=== PATIENT | male | born 1985 | race Caucasian/White ===

== ENCOUNTER 2017-02-14 11:20 | Emergency (ER) | payer SELFPAY ==
[2017-02-14 11:27] VITALS: BP 141/89
--- NOTE | 2017-02-14 12:14 | UC ---
Throat Pain/Nasal Jos HPI - HPI Summary HPI Summary: SEVERAL MONTHS OF NECK STIFFNESS, SORE THROAT, OCCASIONAL FB FEELING. IN JULY TOOK 14 DAYS OF PRILOSEC, STOPPED TAKING MEDICATION BUT SYMPTOMS HAVE RETURNED AND NOW ARE WORSENING. NO FEVER. NO PRIMARY CARE. - History of Current Complaint Chief Complaint: UCRespiratory Stated Complaint: SORE THROAT Time Seen by Provider: 02/14/17 11:23 Hx Obtained From: Patient Onset/Duration: Gradual Onset, Lasting Weeks - LASTING MONTHS, Still Present Severity: Moderate Cough: None Associated Signs & Symptoms: Positive: Dysphagia, FB Sensation, Hoarseness - Epiglottits Risk Factors Epiglottis Risk Factors: Negative - Allergies/Home Medications Allergies/Adverse Reactions: Allergies Allergy/AdvReac Type Severity Reaction Status Date / Time No Known Allergies Allergy Verified 02/14/17 11:27 PMH/Surg Hx/FS Hx/Imm Hx Previously Healthy: Yes Cardiovascular History Of: Reports: Cardiac Disorders - HEART MURMUR Comment Only: Hypertension - FAMILIAL HX OF HTN - Surgical History Surgical History: Yes Surgery Procedure, Year, and Place: Left Carpal Tunnel, ~2003, [place] - Family History Known Family History: Negative: Diabetes - Social History Occupation: Employed Full-time Lives: With Family Alcohol Use: Weekly Substance Use Type: None Smoking Status (MU): Light Every Day Tobacco Smoker Type: Cigarettes Amount Used/How Often: 5-10 cigarettes if drinking Length of Time of Smoking/Using Tobacco: 8 Years Have You Smoked in the Last Year: Yes When Did the Patient Quit Smoking/Using Tobacco: 05/25/16 - Immunization History Most Recent Influenza Vaccination: Not the 2015/2016 Season Review of Systems Constitutional: Negative Skin: Negative Eyes: Negative ENT: Sore Throat Respiratory: Negative Cardiovascular: Negative Gastrointestinal: Negative Genitourinary: Negative Motor: Negative Neurovascular: Negative Musculoskeletal: Negative Neurological: Negative Psychological: Negative All Other Systems Reviewed And Are Negative: Yes Physical Exam Triage Information Reviewed: Yes Appearance: Well-Appearing, No Pain Distress, Well-Nourished Vital Signs: Initial Vital Signs Temp 97.9 F 02/14/17 11:22 Pulse 78 02/14/17 11:22 Resp 14 02/14/17 11:22 BP 141/89 02/14/17 11:22 Pulse Ox 99 02/14/17 11:22 Vital Signs Reviewed: Yes Eye Exam: Normal ENT: Positive: Hearing grossly normal, Pharyngeal erythema, TMs normal, Tonsillar swelling Dental Exam: Normal Neck exam: Normal Neck: Positive: Supple, Nontender, No Lymphadenopathy. Negative: Nuchal Rigidity, Tenderness @, Enlarged Nodes @ Respiratory Exam: Normal Respiratory: Positive: Chest non-tender, Lungs clear, Normal breath sounds, No respiratory distress, No accessory muscle use Cardiovascular Exam: Normal Cardiovascular: Positive: RRR, No Murmur, Pulses Normal, Brisk Capillary Refill Abdominal Exam: Normal Abdomen Description: Positive: Nontender, No Organomegaly, Soft Musculoskeletal Exam: Normal Musculoskeletal: Positive: Strength Intact, ROM Intact, No Edema Neurological Exam: Normal Psychological Exam: Normal Skin Exam: Normal Throat Pain/Nasal Course/Dx - Differential Dx/Diagnosis Differential Diagnosis/HQI/PQRI: Tonsillitis, URI, Other - GERD Provider Diagnoses: GERD. TONSILLITIS Discharge - Discharge Plan Condition: Stable Disposition: HOME Patient Education Materials: Gastroesophageal Reflux Disease (ED), Tonsillitis (ED) Referrals: [facility] [Outside] Paul Bliss MD [Medical Doctor] - Additional Instructions: DAILY OTC RANITIDINE (FOLLOW RECOMMENDATIONS ON BOTTLE) FOR TREATMENT OF ACID REFLUX FOR FOUR WEEKS
== END 2017-02-14 12:18 | disposition home or self-care (01) ==
LOC: UCCORT 11:20
DX: K21.9 Gastro-esophageal reflux disease without esophagitis (principal); J03.90 Acute tonsillitis, unspecified; R01.1 Cardiac murmur, unspecified; F17.210 Nicotine dependence, cigarettes, uncomplicated
CPT/HCPCS: 87651; 99211; G0463